=== PATIENT | male | born 1955 | race Caucasian/White ===

== ENCOUNTER 2016-09-25 09:14 | Outpatient (CLI) | payer MEDICAID, OTHER ==
[2015-05-10 11:06] VITALS: BP 121/77
[2016-09-25 09:35] LABS: BASOPHILS % 0.6 (0.0-1.5); EOSINOPHILS % 13.4 % (0.0-6.8); LYMPHOCYTES # 1.6 # k/uL (0.6-4.0); MEAN CORPUSCULAR HEMOGLOBIN 30.3 pg (28.0-34.0); MONOCYTES # 0.5 # k/uL (0.0-0.9); MONOCYTES % 7.3 % (0.0-11.0); NEUTROPHILS # 3.4 # k/uL (1.4-7.7)
[2016-09-25 10:11] LABS: eGFR (African) > 60; eGFR (Non-African) > 60
--- NOTE | 2016-09-25 20:02 | Diagnostic Imaging Report ---
Report Submission Date: Sep 25, 2016 10:20:13 AM CDT Patient ~ Study Name: LELAND MURILLO ~ Date: Sep 25, 2016 9:34:00 AM CDT ~ Modality Type: CR Gender: M ~ Description: ABDOMEN : 55 ~ Institution: [facility] Physician: LUIS F MURRAY (COMPUTER SYSTEMS HARDWARE ANALYST) - OP ~ ~ ~ ~ Abdomen series History: Abdominal pain and diarrhea for 2 months Findings: Cholecystectomy and lumbar spondylosis are observed. The bowel gas pattern is normal without obstruction, free air, or constipation. Impression: Normal bowel gas pattern. ~ Electronically signed on Sep 25, 2016 10:20:13 AM CDT by: Charles DRAKE
== END 2016-09-25 09:15 ==
LOC: LAB 09:14
PROVIDERS: ATTEND Nurse Practitioner Family
DX: R19.4 Change in bowel habit (principal); R10.817 Generalized abdominal tenderness
CPT/HCPCS: 36415; 74020; 80053; 82270; 85025; 85651; 87045; 87046; 87177; 87209; 87427; 87493; 89055

== ENCOUNTER 2017-03-31 09:29 | Day surgery (SDC) | payer OTHER ==
[2015-05-10 11:06] VITALS: BP 121/77
[~2017-03-31 09:29] MED LIST: LACTATED RINGERS 1,000 ML IV.SOLN IV ONE; PROPOFOL 500 MG/50 ML VIAL IV ONE; SALINE FLUSH 10 ML DISP.SYRIN IVF ONE
--- NOTE | 2017-04-01 15:14 | GI Report ---
REFERRING PHYSICIAN: MARILUZ Mai SEPTIC TANK SERVICER: Bruno Duncan MD PROCEDURE MEDICATION: Propofol as per anesthesia. INDICATIONS: This is a 62-year-old man with multiple medical issues who is disabled. He complains of trouble with his stomach. He has reflux in spite of taking a PPI twice a day. He has some nausea, though no vomiting. Apparently, he had a colonoscopy attempt at the [facility] 2 months ago but was not prepped out well enough to see, so it was apparently incomplete. He does have sleep apnea. He continues smoking a pack of cigarettes a day for 40 years. He is a marijuana user and has used crack cocaine in the past. He has metabolic syndrome with central obesity. He is referred for the above indications. On examination, lungs with decreased breath sounds. Abdomen is protuberant. PROCEDURE PERFORMED: Endoscopy and biopsies. PROCEDURE: An [employer]igator Internet video endoscope is passed through esophagus under direct visualization. The patient has tobacco stains up and down his esophagus. He does have grade 2 esophagitis at the GE junction which was biopsied and not obvious Dent's. The stomach is entered. There is bile present. He has 3 ulcers in the antrum of the stomach. We did biopsy for pathology. Duodenal bulb and first part of the duodenum shows some duodenitis. Patient tolerated the procedure well. FINDINGS: 1. Esophagitis. 2. Severe gastritis with multiple antral ulcers. RECOMMENDATIONS: 1. His PPI to be effective needs to be taken 15 to 30 minutes before meals. 2. Would take an antacid, like Gaviscon, at bedtime because of the bile present. 3. His stomach is unlikely to heal unless he gives up his marijuana and tobacco usage. 4. He needs to get his diet under control. I am sure he is a borderline diabetic. At least smaller meals. Cut out sugars. Decrease carbohydrates. 5. Follow up biopsy results. 6. Follow up with Barbara Anderson in the office. cc: MARILUZ Mai [facility]AMPUSKenneth
== END 2017-03-31 09:30 ==
LOC: OPSURG 09:29
PROVIDERS: ATTEND Internal Medicine Gastroenterology
DX: K21.0 Gastro-esophageal reflux disease with esophagitis (principal); K29.70 Gastritis, unspecified, without bleeding; K25.9 Gastric ulcer, unspecified as acute or chronic, without hemorrhage or perforation; R11.0 Nausea; F17.210 Nicotine dependence, cigarettes, uncomplicated; F12.90 Cannabis use, unspecified, uncomplicated; E88.81 Metabolic syndrome and other insulin resistance; E66.8 Other obesity; G47.30 Sleep apnea, unspecified
CPT/HCPCS: 88305; J2704; J7120; 43239; S1016

== ENCOUNTER 2017-04-09 14:49 | Outpatient (CLI) | payer OTHER ==
[2015-05-10 11:06] VITALS: BP 121/77
[2017-04-10 11:30] LABS: ADENOVIRUS F 40/41 Not Detected (Not Detected); ASTROVIRUS Not Detected (Not Detected); C. DIFFICILE (TOXIN A/B) Not Detected (Not Detected); CRYPTOSPORIDIUM Not Detected (Not Detected); CYCLOSPORA CAYETANENSIS Not Detected (Not Detected); ENTAMOEBA HISTOLYTICA Not Detected (Not Detected); GIARDIA LAMBLIA Not Detected (Not Detected); ROTAVIRUS A Not Detected (Not Detected); SAPOVIRUS Not Detected (Not Detected); VIBRIO CHOLERAE Not Detected (Not Detected)
== END 2017-04-09 14:50 ==
LOC: LAB 14:49
PROVIDERS: ATTEND Nurse Practitioner Family
DX: R19.4 Change in bowel habit (principal)
CPT/HCPCS: 87045; 87046; 87427; 87507

== ENCOUNTER 2018-05-12 14:52 | Outpatient (CLI) | payer MEDICARE, OTHER ==
[2015-05-10 11:06] VITALS: BP 121/77
[2018-05-12 15:34] LABS: BASOPHILS % 0.4 (0.0-1.5); MEAN CORPUSCULAR HEMOGLOBIN 27.9 pg (28.0-34.0); MONOCYTES % 9.7 % (0.0-11.0); NEUTROPHILS # 3.9 # k/uL (1.4-7.7)
[2018-05-12 21:51] LABS: IRON SERUM 45 ug/dL (59-158); SERUM IRON 45 ug/dL (59-158)
== END 2018-05-12 14:53 ==
LOC: LAB 14:52
PROVIDERS: ATTEND Nurse Practitioner Family
DX: E61.1 Iron deficiency (principal); A04.72 Enterocolitis due to Clostridium difficile, not specified as recurrent
CPT/HCPCS: 36415; 83540; 83550; 85025; 87045; 87046; 87177; 87209; 87427; 87493